=== PATIENT | male | born 1965 ===

== ENCOUNTER 2021-10-02 10:45 | Inpatient (IN) | payer OTHER ==
[~2021-10-02] VITALS: Ht 170.2 cm; Wt 80.3 kg
== END 2021-10-06 11:52 | disposition home or self-care (01) | DRG 330 ==
LOC: O/R 10-04 06:00 → SURH 10-04 06:00
PROVIDERS: ADMIT Colon & Rectal Surgery; ATTEND Colon & Rectal Surgery
PROC: 0DTN4ZZ Resection of Sigmoid Colon, Percutaneous Endoscopic Approach (ICD-10-PCS; 2021-10-04)
PROC: 0DBP4ZZ Excision of Rectum, Percutaneous Endoscopic Approach (ICD-10-PCS; principal; 2021-10-04 10:45)
DX: K57.32 Diverticulitis of large intestine without perforation or abscess without bleeding (principal); K92.1 Melena; Z20.822 Contact with and (suspected) exposure to COVID-19; R73.01 Impaired fasting glucose; D75.1 Secondary polycythemia